=== PATIENT | female | born 1975 | race Caucasian/White ===

== ENCOUNTER → 2020-01-27 | Outpatient (CLI) | payer BC ==
--- NOTE | 2020-01-27 08:22 | RAD ---
MACARENA ART STUDY LOWER EXTREM JESSICA History: Diminished pulses of the lower extremity Comparison: None. Findings: Right MACARENA was 1. Left MCAARENA could not be obtained as no detectable left ankle pulses. Impression: 1. There were no detectable left ankle pulses. Right MACARENA is within normal limits. Electronically signed by: Luciano Storey MD (01/27/2020 8:19 AM) [facility]
== END ==
LOC: US 08:31
PROVIDERS: ATTEND Family Medicine
DX: R09.89 Other specified symptoms and signs involving the circulatory and respiratory systems (principal)
CPT/HCPCS: 93922

== ENCOUNTER 2020-02-10 07:00 | Outpatient (CLI) | payer BC ==
[~2020-02-10] VITALS: Ht 162.6 cm; Wt 127.0 kg
[2020-02-10] VITALS (14 sets, daily range): BP systolic 139–169; BP diastolic 60–100
[2020-02-10 07:56] LABS: BASO # 0.1 x10^3/uL (0.0-0.2); BASO % 1 % (0-3); EOS # 0.2 x10^3/uL (0.0-0.7); EOS % 1 % (0-3); HEMATOCRIT 40.6 % (36.0-47.0); HEMOGLOBIN 13.7 g/dL (12.0-15.5); LYMPH # 2.4 x10^3/uL (1.0-4.8); LYMPH % 14 % (24-48); MEAN CORPUSCULAR HEMOGLOBIN 30 pg (25-35); MEAN CORPUSCULAR HGB CONC 34 g/dL (31-37); MEAN CORPUSCULAR VOLUME 87 fL (79-100); MONO # 0.6 x10^3/uL (0.0-1.1); MONO % 4 % (0-9); NEUT # 14.3 x10^3/uL (1.8-7.7); NEUT % 81 % (31-73); PLATELET COUNT 388 x10^3/uL (140-400); RED BLOOD COUNT 4.65 x10^6/uL (3.50-5.40); RED CELL DISTRIBUTION WIDTH 13.4 % (11.5-14.5); WHITE BLOOD COUNT 17.6 x10^3/uL (4.0-11.0)
[2020-02-10 08:04] LABS: PROTHROMBIN TIME PATIENT 12.4 SEC (11.7-14.0)
[2020-02-10 08:11] LABS: CALCIUM 8.7 mg/dL (8.5-10.1); CREATININE 0.5 mg/dL (0.6-1.0)
[2020-02-10] MEDS ORDERED: LIDOCAINE WITH 8.4% SOD BICARB 3 ML DISP.SYRIN. ONE (08:24)
[2020-02-10] MEDS ORDERED: IODIXANOL 320 MG/ML 100 ML VIAL. ONE (08:25)
[2020-02-10] MEDS ORDERED: HEPARIN for ARTERIAL LINE 1,500 ML ONE (08:25)
[2020-02-10] MEDS ORDERED: HYDR-2761 PO (08:26)
[2020-02-10] MEDS ORDERED: CILO100T PO (08:26)
[2020-02-10] MEDS ORDERED: BREO ELLIPTA 11 EACH IH (08:26)
[2020-02-10] MEDS ORDERED: METF10007 PO (08:26)
[2020-02-10] MEDS ORDERED: DULO60CA6 PO (08:26)
[2020-02-10] MEDS ORDERED: DULA3PEN SQ (08:26)
[2020-02-10] MEDS ORDERED: LIPITOR80 MG PO (08:26)
[2020-02-10] MEDS ORDERED: VARE1TAB21 PO (08:26)
[2020-02-10] MEDS ORDERED: INSU100V37 SQ (08:26)
[2020-02-10] MEDS ORDERED: ALBU2.5V8 INH (08:26)
[2020-02-10 08:31] LABS: % BANDS 3 % (0-9); % LYMPHS 9 % (24-48); % MONOS 5 % (0-10); % SEGS 83 % (35-66); PLT ESTIMATE ADEQUATE (ADEQUATE)
[2020-02-10] MEDS ORDERED: fentaNYL PF VIAL 250 MCG/5 ML VIAL ONE (08:41)
[2020-02-10] MEDS ORDERED: MIDAZOLAM HCL/PF 5 MG/5 ML VIAL. ONE (08:41)
[2020-02-10] MEDS ORDERED: HEPARIN for IV BOLUS 10,000 UNIT/10 ML VIAL. ONE (08:41)
[2020-02-10] MEDS ORDERED: IODIXANOL 320 MG/ML 100 ML VIAL. IART ONE (09:00)
[2020-02-10] MEDS ORDERED: fentaNYL PF VIAL 250 MCG/5 ML VIAL IV ONE (09:00)
[2020-02-10] MEDS ORDERED: LIDOCAINE WITH 8.4% SOD BICARB 3 ML DISP.SYRIN. IJ ONE (09:00)
[2020-02-10] MEDS ORDERED: MIDAZOLAM HCL/PF 5 MG/5 ML VIAL. IV ONE (09:00)
[2020-02-10] MEDS ORDERED: HEPARIN for IV BOLUS 10,000 UNIT/10 ML VIAL. IV ONE (09:45)
[2020-02-10] MEDS ORDERED: IODIXANOL 320 MG/ML 50ML VIAL. ONE (10:25)
[2020-02-10] MEDS ORDERED: CLOP75TA PO (10:34)
[2020-02-10] MEDS ORDERED: CLOPIDOGREL BISULFATE 75 MG TABLET PO ONE ×2 (10:45→12:45)
[2020-02-10] MEDS ORDERED: oxyCODONE/APAP 5/325 1 TAB TABLET ONE (12:42)
[2020-02-10] MEDS ORDERED: oxyCODONE/APAP 10/325 1 TAB TABLET PO PRN (12:45)
--- NOTE | 2020-02-10 14:30 | NUR ---
Discharge Note: MIR MCFARLAND Discharge instructions and discharge home medications reviewed with Patient and a copy given. All questions have been answered and understanding verbalized. The following instructions and handouts were given: Angiogram, moderate sedation, and groin site care. Discontinued lines and drains: Left FA IV dc'd and tip intact. Patient discharged to home with spouse via personal vehicle.
[2020-02-11] MEDS ORDERED: CLOPIDOGREL BISULFATE 75 MG TABLET PO SCH (08:00)
--- NOTE | 2020-02-11 15:18 | RAD ---
02/10/2020 9:23 AM Procedure: Abdominal angiogram Pelvic angiography Left lower extremity angiography Balloon angioplasty and self expanding stent placement left superficial femoral artery Clinical Indication: Left lower extremity claudication Discussion: The procedure was explained in its entirety to the patient or the patients designated client support representative by a member of the treatment team, including a discussion of the risks, benefits and commonly accepted alternatives to the procedure, as well as the expected consequences of no therapy whatsoever. Discussion of the risks included, but was not limited to, those that are most frequent and those that are rare but possibly severe or life-threatening, as well as the possibility of unforeseen complications. All elements of maximal sterile barrier technique including the use of a cap, mask, sterile gown, sterile gloves, large sterile sheet, appropriate hand hygiene, and 2% chlorhexidine for cutaneous antisepsis (or acceptable alternative antiseptic per current guidelines) were followed for this procedure. Total fluoroscopy time: 20.6 min Dose area product: 623 Gycm2 The procedures performed under conscious sedation including continuous cardiopulmonary monitoring via dedicated sedation nurse. [id number] sedation time: 120 minutes The right groin was prepped and draped using sterile barrier technique. Ultrasound evaluation demonstrates patency of the right common femoral artery. 1% lidocaine was administered for local anesthesia. The artery is accessed using direct ultrasound guidance and micropuncture technique. Reference ultrasound images were saved the medical record. Abdominal aortogram was performed demonstrating a high bifurcation of the common iliac arteries are otherwise unremarkable appearance of the abdominal aorta. The aortic bifurcation was crossed. Left lower extremity angiography was performed demonstrating high-grade stenosis of the proximal and mid left SFA with occlusion of the distal SFA in the adductor canal. There is reconstitution of the [id number] popliteal artery. The tibial peroneal trunks patent. Anterior tibial artery is patent. The peroneal artery is dominant and supplies the lateral plantar artery. 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 The superficial femoral artery stenosis/occlusion was traversed balloon angioplasty was performed with a 5 mm balloon. Multiple areas of and somewhat flow limiting dissection were seen. Self expanding stents replacement distal proximal SFA with repeat balloon angioplasty of the mid SFA. This resulted in significantly improved morphology and flow, with acceptable minimal residual irregularity. The sheath was removed. A minx device was deployed. Manual pressure was held additionally. Sterile dressings were applied. No immediate complications are identified. 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
== END 2020-02-10 14:30 | disposition home or self-care (01) ==
LOC: INTRAD 07:00
PROVIDERS: ATTEND Family Medicine
DX: I70.212 Atherosclerosis of native arteries of extremities with intermittent claudication, left leg (principal); I70.8 Atherosclerosis of other arteries; I10 Essential (primary) hypertension; E11.42 Type 2 diabetes mellitus with diabetic polyneuropathy; J45.909 Unspecified asthma, uncomplicated; M19.90 Unspecified osteoarthritis, unspecified site; F32.9 Major depressive disorder, single episode, unspecified; F41.9 Anxiety disorder, unspecified; F17.210 Nicotine dependence, cigarettes, uncomplicated; Z79.4 Long term (current) use of insulin; Z79.899 Other long term (current) drug therapy; Z98.890 Other specified postprocedural states
CPT/HCPCS: 36415; 37226; 75625; 75710; 76937; 80048; 85007; 85025; 85610; 85730; 99152; 99153; C1713; C1725; C1760; C1769; C1892; C1894; J1644; J2250; J3010; J3490; Q9967; G0269